=== PATIENT | female | born 1960 | race African-American/Black ===

== ENCOUNTER 2016-08-20 14:27 | Emergency (ER) | payer MEDICAID ==
[~2016-08-20] VITALS: Ht 149.9 cm; Wt 61.7 kg
[~2016-08-20 14:27] MED LIST: AUGMENTIN 875-1 EAC1 ORAL; CORTISPORIN EAR10 ML OTIC; CYCLOBENZAPRINE10 MG ORAL; DOCUSATE SODIU100 M2 ORAL; IBUPROFEN600 MG ORAL; NKM; NORCO 5-325 TA1 EACH ORAL
[2016-08-20] MEDS ORDERED: DEBROX15 M1 RIGHT EAR (15:04)
[2016-08-20] MEDS ORDERED: CORTISPORIN EAR10 ML RIGHT EAR (15:04)
[2016-08-20 15:14] VITALS: BP 110/69
[2016-08-20 15:16] VITALS: BP 110/69
--- NOTE | 2016-08-20 23:05 | Emergency Room Report ---
History of Present Illness General Chief Complaint: Earache Source: Patient Present Illness HPI The patient is a 55-year-old female presenting with right ear pain which began 3 days prior. The patient states that she had water stuck in the ear and used a Q-tip aggressively and subsequently developed the pain. The patient states that the pain is a 9/10 dull ache it is worse with touch. Pain does not radiate. The patient denies any changes in hearing and denies dizziness, headache, fever, chills Allergies: Coded Allergies: No Known Allergies (Unverified , 07/28/14) Patient History Past Medical History: see triage record Pertinent Family History: none Last Menstrual Period: n/a Reviewed Nursing Documentation: PMH: Agreed, PSxH: Agreed Nursing Documentation-PMH Past Medical History: No Stated History Review of Systems All Other Systems: negative except mentioned in HPI Physical Exam Vital Signs Date Time Temp Pulse Resp B/P Pulse Ox O2 Delivery O2 Flow Rate FiO2 08/20/16 14:36 98.1 79 16 110/69 99 Room Air Sp02 EP Interpretation: reviewed, normal General Appearance: no apparent distress, alert, GCS 15, non-toxic Head: normocephalic, atraumatic Eyes: bilateral eye PERRL, bilateral eye normal inspection ENT: hearing grossly normal, normal pharynx, no angioedema, normal voice, other - R ear EAC: erythema and edema with white DC Neck: full range of motion, supple/symm/no masses Respiratory: chest non-tender, lungs clear, normal breath sounds, speaking full sentences Cardiovascular #1: regular rate, rhythm, no edema Neurologic: alert, oriented x3, responsive, motor strength/tone normal, sensory intact, speech normal Psychiatric: judgement/insight normal, memory normal, mood/affect normal, no suicidal/homicidal ideation Skin: normal color, no rash, warm/dry, well hydrated Lymphatic: no adenopathy Medical Decision Making PA Attestation Dr. Mcarthur is my supervising physician. Patient management was discussed with my supervising physician Diagnostic Impression: Primary Impression: Cerumen impaction Additional Impression: Otitis externa of right ear ER Course The patient is a 55-year-old female presenting with right ear pain which began 3 days prior. Differential diagnosis include but not limited to otitis externa, otitis media, mastoiditis, sinusitis, pharyngitis Physical exam: Vitals within normal limits her distress Right ear: There is erythema and edema with white discharge to the external auditory canal. There is also cerumen impaction. Tympanic membrane is not visualized. There is tenderness to palpation with pressure over the tragus. Otherwise exam unremarkable The patient is discharged home with a prescription for the proximal and Cortisporin. ER precautions are given. Patient told to no longer use Q-tips. Last Vital Signs Date Time Temp Pulse Resp B/P Pulse Ox O2 Delivery O2 Flow Rate FiO2 08/20/16 15:16 98.1 08/20/16 15:16 69 16 110/69 99 Room Air Status: improved Disposition: HOME, SELF-CARE Condition: Improved Scripts Neomycin/Polymyxin B Sulf/Hc* (CORTISPORIN EAR SOLUTION*) 10 Ml Solution 4 DROP RIGHT EAR QID, #10 ML 0 Refills Prov: CONRAD SANTANA 08/20/16 Carbamide Peroxide (DEBROX) 15 Ml Drops 10 DROP RIGHT EAR TWICE A DAY for 4 Days, ML 0 Refills Prov: CONRAD SANTANA 08/20/16 Patient Instructions: Cerumen Impaction, Otitis Externa Additional Instructions: I discussed my findings with the patient. All questions and concerns have been answered. Treatment and medication compliance have been addressed. I advised the patient that they need to follow up with PMD in 3-5 days. Return to ED if symptoms worsen, new symptoms arise, or if needed for any reason. Patient verbalized understanding of discharge instructions. CONRAD SANTANA Aug 20, 2016 23:05
== END 2016-08-20 15:18 | disposition home or self-care (01) ==
LOC: EMR 15:00
DX: H61.21 Impacted cerumen, right ear (principal); H60.91 Unspecified otitis externa, right ear
CPT/HCPCS: 99284

== ENCOUNTER 2016-09-25 17:36 | Emergency (ER) | payer MEDICAID ==
[~2016-09-25] VITALS: Ht 149.9 cm; Wt 61.7 kg
[~2016-09-25 17:36] MED LIST changes: +CORTISPORIN EAR10 ML RIGHT EAR; +DEBROX15 M1 RIGHT EAR
[2016-09-25] MEDS ORDERED: Bacitracin Oint UD TOPIC ONE (19:00)
--- NOTE | 2016-09-25 19:06 | Emergency Room Report ---
History of Present Illness General Chief Complaint: Skin Rash/Abscess Source: Patient Present Illness HPI 55-year-old female presents to emergency Department complaining of rash localized to the inner left forearm and inner thigh/knee times one day. Patient reports 10 out of 10 in severity pain which she describes as burning in nature she reports mild itching. Patient states that originally she felt burning sensation and then noticed small bumps in the areas described which also became swollen with itching. Patient states she applied toothpaste with no relief she is worried that she is a spider bite and may have gotten infected. Patient denies lesions elsewhere she denies other contacts with similar symptoms. Patient denies recent travel patient denies nausea vomiting fevers chills. She denies history of immunocompromise. Denies CP, Palpitations , LOC, AMS, dizziness, Changes in Vision, Sensation, paresthesias, or a sudden severe headache. Allergies: Coded Allergies: No Known Allergies (Unverified , 07/28/14) Patient History Past Medical History: see triage record Past Surgical History: none Pertinent Family History: none Last Menstrual Period: 2009 Now: No Immunizations: UTD Reviewed Nursing Documentation: PMH: Agreed, PSxH: Agreed Nursing Documentation-PMH Past Medical History: No History, Except For Review of Systems All Other Systems: negative except mentioned in HPI Physical Exam Vital Signs Date Time Temp Pulse Resp B/P Pulse Ox O2 Delivery O2 Flow Rate FiO2 09/25/16 18:03 98.6 99 16 125/75 100 Room Air Sp02 EP Interpretation: reviewed, normal General Appearance: no apparent distress, alert, GCS 15, non-toxic Head: normocephalic, atraumatic Eyes: bilateral eye PERRL, bilateral eye normal inspection ENT: hearing grossly normal, normal pharynx, no angioedema, normal voice Neck: full range of motion, supple/symm/no masses Respiratory: chest non-tender, lungs clear, normal breath sounds, speaking full sentences Cardiovascular #1: regular rate, rhythm, no edema Gastrointestinal: normal bowel sounds, non tender, soft, no guarding, no rebound Rectal: deferred Genitourinary: normal inspection, no CVA tenderness Musculoskeletal: back normal, gait/station normal, normal range of motion, non- tender, no calf tenderness Neurologic: alert, oriented x3, responsive, motor strength/tone normal, sensory intact, speech normal Psychiatric: judgement/insight normal, memory normal, mood/affect normal, no suicidal/homicidal ideation Skin: normal color, warm/dry, well hydrated, rash - Localized areas with vesicular lesions and surrounding erythema.and induration. to the left inner forearm, and lef tmedial thigh. Lymphatic: no adenopathy Medical Decision Making PA Attestation Dr. Wooten is my supervising Physician whom patient management has been discussed with. Diagnostic Impression: Primary Impression: Rash and other nonspecific skin eruption ER Course 55-year-old female presents to emergency Department complaining of rash localized to the inner left forearm and inner thigh/knee times one day. Patient reports 10 out of 10 in severity pain which she describes as burning in nature she reports mild itching. Patient states that originally she felt burning sensation and then noticed small bumps in the areas described which also became swollen with itching. Patient states she applied toothpaste with no relief she is worried that she is a spider bite and may have gotten infected. Patient denies lesions elsewhere she denies other contacts with similar symptoms. Patient denies recent travel patient denies nausea vomiting fevers chills. She denies history of immunocompromise. Ddx considered but are not limited to cellulitis, scabies, shingles, varicella, dermatitis, urticaria, eczema, tinea Vital signs: are WNL, pt. is afebrile H&PE are most consistent with vesicular viral looking rash with surrounding erythema and increased temperature to palpation suspicious for secondary infection. ORDERS: none required at this time, the diagnosis is clinical ED INTERVENTIONS: -650mg Tylenol PO -Bacitracin and wound dressing is applied to the localized rashes. DISCHARGE: At this time pt. is stable for d/c to home. Will provide printed patient care instructions, and any necessary prescriptions. Care plan and follow up instructions have been discussed with the patient prior to discharge. Last Vital Signs Date Time Temp Pulse Resp B/P Pulse Ox O2 Delivery O2 Flow Rate FiO2 09/25/16 18:03 98.6 99 16 125/75 100 Room Air Disposition: HOME, SELF-CARE Condition: Stable Scripts Acetaminophen* (TYLENOL EXTRA STRENGTH*) 500 Mg Tablet 500 MG ORAL Q6H, #30 TAB 0 Refills Prov: Gloria Puentes P.ALuis 09/25/16 Cephalexin* (KEFLEX*) 500 Mg Capsule 500 MG ORAL EVERY 12 HOURS for 7 Days, #14 CAP 0 Refills Prov: Gloria Puentes 09/25/16 Bacitracin Zinc/Polymyx B Sulf (HM DOUBLE ANTIBIOTIC OINTMENT) 28.4 Gm Oint...g. 1 APPLIC TP TID, #28.4 GM Prov: Gloria Puentes 09/25/16 Hydroxyzine Hcl (HYDROXYZINE HCL) 25 Mg Tablet 25 MG PO Q6HR, #30 TAB Prov: Gloria Puentes 09/25/16 Acyclovir* (ACYCLOVIR*) 400 Mg Tablet 400 MG ORAL FIVE TIMES A DAY for 7 Days, #35 TAB Prov: Gloria Puentes 09/25/16 Referrals: NAHEED DAVIS,REFERRING (PCP) Patient Instructions: Rash Additional Instructions: Take medications as directed. Follow up with PCP in 3-5 days Return sooner to ED if new symptoms occur, or current symptoms become worse. Do not drink alcohol, drive, or operate heavy machinery while taking hydroxyzine as this may cause drowsiness. - Please note that this Emergency Department Report was dictated using [employer] inspector technology software, occasionally this can lead to erroneous entry secondary to interpretation by the dictation equipment. Gloria Puentes Sep 25, 2016 19:06
[2016-09-25] MEDS ORDERED: TYLENOL EXTRA500 MG ORAL (19:09)
[2016-09-25] MEDS ORDERED: HM DOUBLE ANT28.4 G1 TP (19:09)
[2016-09-25] MEDS ORDERED: HYDROXYZINE HCL25 M1 PO (19:09)
[2016-09-25] MEDS ORDERED: CEPHALEXIN500 MG ORAL (19:09)
[2016-09-25] MEDS ORDERED: ACYCLOVIR400 MG ORAL (19:09)
[2016-09-25 19:30] VITALS: BP_SYST 126; BP_SYST 127; BP_DIAS 83
== END 2016-09-25 19:30 | disposition home or self-care (01) ==
LOC: EMR 18:25
DX: R21 Rash and other nonspecific skin eruption (principal)
CPT/HCPCS: 99284

== ENCOUNTER 2017-01-14 19:02 | Emergency (ER) | payer MEDICAID ==
[~2017-01-14] VITALS: Ht 149.9 cm; Wt 59.0 kg
[~2017-01-14 19:02] MED LIST changes: +ACYCLOVIR400 MG ORAL; +CEPHALEXIN500 MG ORAL; +HM DOUBLE ANT28.4 G1 TP; +HYDROXYZINE HCL25 M1 PO; +TYLENOL EXTRA500 MG ORAL
[2017-01-14 19:30] VITALS: BP 130/79
--- NOTE | 2017-01-14 19:41 | Emergency Room Report ---
History of Present Illness General Chief Complaint: Animal Bite Source: Patient Present Illness HPI 56-year-old female presents emergency department complaining of multiple insect bites on the posterior thighs bilaterally since yesterday. Patient reports erythema, mild swelling, moderate itching. Pt. describes 8/10 in severity burning and itching. She denies increased temperature palpation, denies fevers chills, recent trauma or fall. She denies lesions elsewhere on the body. Denies Wheezing, SOB, swelling of th lips/tongue, CP, Palpitations, LOC, AMS, dizziness, Changes in Vision, Sensation, paresthesias, or a sudden severe headache. Allergies: Coded Allergies: No Known Allergies (Unverified , 07/28/14) Patient History Past Medical History: see triage record Past Surgical History: none Pertinent Family History: none Last Menstrual Period: N/A Now: No Immunizations: UTD Reviewed Nursing Documentation: PMH: Agreed, PSxH: Agreed Review of Systems All Other Systems: negative except mentioned in HPI Physical Exam Vital Signs Date Time Temp Pulse Resp B/P Pulse Ox O2 Delivery O2 Flow Rate FiO2 01/14/17 19:05 99.7 76 18 136/80 100 Room Air Sp02 EP Interpretation: reviewed, normal General Appearance: no apparent distress, alert, GCS 15, non-toxic Head: normocephalic, atraumatic Eyes: bilateral eye PERRL, bilateral eye normal inspection ENT: hearing grossly normal, normal pharynx, no angioedema, normal voice Neck: full range of motion, supple/symm/no masses Respiratory: lungs clear, normal breath sounds, no wheezing, speaking full sentences Cardiovascular #1: regular rate, rhythm, no edema Musculoskeletal: back normal, gait/station normal, normal range of motion, non- tender Neurologic: alert, oriented x3, responsive, motor strength/tone normal, sensory intact, speech normal Psychiatric: judgement/insight normal, memory normal, mood/affect normal Skin: normal color, no rash, warm/dry, well hydrated, other - multiple insect bites to the posterior thighs bilaterally, no evidence of secondary infection at this time, no blistering no vessicles Lymphatic: no adenopathy Medical Decision Making PA Attestation Dr. Bermudez is my supervising Physician whom patient management has been discussed with. Diagnostic Impression: Primary Impression: Insect bite Qualified Codes: W57.XXXA - Bitten or stung by nonvenomous insect and other nonvenomous arthropods, initial encounter ER Course 56-year-old female presents emergency department complaining of multiple insect bites on the posterior thighs bilaterally since yesterday. Patient reports erythema, mild swelling, moderate itching. Pt. describes 8/10 in severity burning and itching. She denies increased temperature palpation, denies fevers chills, recent trauma or fall. She denies lesions elsewhere on the body. Denies Wheezing, SOB, swelling of th lips/tongue, CP, Palpitations, LOC, AMS, dizziness, Changes in Vision, Sensation, paresthesias, or a sudden severe headache. Ddx considered but are not limited to cellulitis, scabies, insect bites, tic bites, spider bites, contact dermatitis, Drug reaction, allergic reaction, fungal infection, lice. Vital signs: are WNL, pt. is afebrile H&PE are most consistent with localized reaction to insect bites, no evidence of secondary infection at this time. ORDERS: none required at this time, the diagnosis is clinical ED INTERVENTIONS: -25mg Benadryl PO -Tylenol PO DISCHARGE: At this time pt. is stable for d/c to home. Will provide printed patient care instructions, and any necessary prescriptions. Care plan and follow up instructions have been discussed with the patient prior to discharge. Last Vital Signs Date Time Temp Pulse Resp B/P Pulse Ox O2 Delivery O2 Flow Rate FiO2 01/14/17 19:05 99.7 76 18 136/80 100 Room Air Disposition: HOME, SELF-CARE Condition: Stable Scripts Acetaminophen* (TYLENOL EXTRA STRENGTH*) 500 Mg Tablet 500 MG ORAL Q6H, #20 TAB 0 Refills Prov: Gloria Puentes 01/14/17 Diphenhydramine Hcl* (BENADRYL*) 25 Mg Capsule 25 MG ORAL Q6H Y for Itching, #20 CAP Prov: Gloria Puentes 01/14/17 Hydrocortisone 2% Cream (ANTI-ITCH 2% CREAM) Y Cr 1 APPLIC TP BID, #28.3 GM Prov: Gloria Puentes 01/14/17 Patient Instructions: Insect Bite, [id number] Additional Instructions: Take medications as directed. Follow up with PCP in 3-5 days Return sooner to ED if new symptoms occur, or current symptoms become worse. - Please note that this Emergency Department Report was dictated using [employer] speaking coach technology software, occasionally this can lead to erroneous entry secondary to interpretation by the dictation equipment. Gloria Puentes. Jan 14, 2017 19:41
[2017-01-14] MEDS ORDERED: TYLENOL EXTRA500 MG ORAL (19:43)
[2017-01-14] MEDS ORDERED: ANTI-ITCH28 G1 TP (19:43)
[2017-01-14] MEDS ORDERED: BENADRYL25 MG ORAL (19:43)
== END 2017-01-14 20:05 | disposition home or self-care (01) ==
LOC: EMR 19:20
DX: S70.362A Insect bite (nonvenomous), left thigh, initial encounter (principal); S70.361A Insect bite (nonvenomous), right thigh, initial encounter; W57.XXXA Bitten or stung by nonvenomous insect and other nonvenomous arthropods, initial encounter; Y93.9 Activity, unspecified; Y92.9 Unspecified place or not applicable
CPT/HCPCS: 99284

== ENCOUNTER 2017-01-17 12:10 | Emergency (ER) | payer MEDICAID ==
[~2017-01-17] VITALS: Ht 149.9 cm; Wt 59.0 kg
[~2017-01-17 12:10] MED LIST changes: +ANTI-ITCH28 G1 TP; +BENADRYL25 MG ORAL
[2017-01-17 12:15] VITALS: BP 139/80
[2017-01-17] MEDS ORDERED: BACTRIM DS TAB1 EAC1 ORAL (12:30)
[2017-01-17] MEDS ORDERED: KEFLEX500 MG ORAL (12:30)
--- NOTE | 2017-01-17 12:34 | Emergency Room Report ---
History of Present Illness General Chief Complaint: Skin Rash/Abscess Source: Patient Present Illness HPI The patient is a 56-year-old female presenting for possible skin infection. The patient was seen in this emergency department 3 days prior for insect bites and given drill and hydrocortisone cream. The patient states that itching decreased but she has noticed increase in swelling and redness. These areas are primarily to the lower extremities. She states that she slept in an RV one week prior which is when the symptoms began. She denies any radiating pain. Pain worse with touch. It is described as a 4-10 dull ache. She denies other symptoms including nausea, vomiting, fever, chills, headache, dizziness, abdominal pain, diarrhea Allergies: Coded Allergies: No Known Allergies (Unverified , 07/28/14) Patient History Past Medical History: see triage record Pertinent Family History: none Last Menstrual Period: menopause Now: No Reviewed Nursing Documentation: PMH: Agreed, PSxH: Agreed Nursing Documentation-PMH Past Medical History: No History, Except For Review of Systems All Other Systems: negative except mentioned in HPI Physical Exam Vital Signs Date Time Temp Pulse Resp B/P Pulse Ox O2 Delivery O2 Flow Rate FiO2 01/17/17 12:15 97.5 62 18 139/80 100 Room Air Sp02 EP Interpretation: reviewed, normal General Appearance: no apparent distress, alert, GCS 15, non-toxic Head: normocephalic, atraumatic Eyes: bilateral eye PERRL, bilateral eye normal inspection ENT: hearing grossly normal, normal pharynx, no angioedema, normal voice Gastrointestinal: normal bowel sounds, non tender, soft, non-distended, no guarding, no rebound Musculoskeletal: back normal, gait/station normal, normal range of motion, no calf tenderness Neurologic: alert, oriented x3, responsive, motor strength/tone normal, sensory intact, speech normal Psychiatric: judgement/insight normal, memory normal, mood/affect normal, no suicidal/homicidal ideation Skin: rash - There are multiple circular erythematous macular lesions on the R lower extremity. Hot to the touch. TTP. Lymphatic: no adenopathy Medical Decision Making PA Attestation Dr. Mcarthur is my supervising physician. Patient management was discussed with my supervising physician Diagnostic Impression: Primary Impression: Cellulitis Qualified Codes: L03.119 - Cellulitis of unspecified part of limb ER Course The patient is a 56-year-old female presenting for possible skin infection Ddx considered include but not limited to insect bite, contact dermatitis, eczema, cellulitis, among others PE: afebrile. NAD There are multiple circular erythematous macular lesions on the R lower extremity. Hot to the touch. TTP. Consistent with cellulitis. The patient will continue to take the prescribed medications as directed and antibiotics will be added for cellulitis. ER precautions given. Last Vital Signs Date Time Temp Pulse Resp B/P Pulse Ox O2 Delivery O2 Flow Rate FiO2 01/17/17 12:15 97.5 62 18 139/80 100 Room Air Status: improved Disposition: HOME, SELF-CARE Condition: Improved Scripts Trimethoprim/Sulfamethoxazole 160/800* (BACTRIM DS TABLET*) 1 Each Tablet 1 TAB ORAL TWICE A DAY, #14 TAB Prov: CONRAD SANTANA 01/17/17 Cephalexin* (KEFLEX*) 500 Mg Capsule 500 MG ORAL EVERY 6 HOURS, #28 CAP 0 Refills Prov: CONRAD SANTANA 01/17/17 Patient Instructions: Cellulitis Additional Instructions: I discussed my findings with the patient. All questions and concerns have been answered. Treatment and medication compliance have been addressed. I advised the patient that they need to follow up with PMD in 3-5 days. Return to ED if symptoms worsen, new symptoms arise, or if needed for any reason. Patient verbalized understanding of discharge instructions. CONRAD SANTANA Jan 17, 2017 12:34
[2017-01-17 12:35] VITALS: BP 139/80
== END 2017-01-17 12:35 | disposition home or self-care (01) ==
LOC: EMR 12:20
DX: L03.115 Cellulitis of right lower limb (principal)
CPT/HCPCS: 99284

== ENCOUNTER 2017-04-07 09:30 | Emergency (ER) | payer MEDICAID ==
[~2017-04-07] VITALS: Ht 149.9 cm; Wt 61.7 kg
[~2017-04-07 09:30] MED LIST changes: +BACTRIM DS TAB1 EAC1 ORAL; +KEFLEX500 MG ORAL
[2017-04-07 09:43] VITALS: BP 131/96
[2017-04-07] MEDS ORDERED: PREDNISONE20 MG ORAL (10:18)
[2017-04-07] MEDS ORDERED: DIPHENHYDRAMINE25 M1 ORAL (10:18)
[2017-04-07] MEDS ORDERED: KEFLEX500 MG ORAL (10:18)
[2017-04-07 10:23] VITALS: BP 126/81
--- NOTE | 2017-04-07 12:44 | Emergency Room Report ---
History of Present Illness General Chief Complaint: Skin Rash/Abscess Source: Patient Present Illness HPI 56-year-old female presents to ED for evaluation. Patient states she has multiple bumps to her body which started this morning. Patient states she just came into town to visit her friend and was staying at her friend's house last night. Patient states the bumps are very itchy with some pain, throbbing, 5 at 10. Denies fevers or chills. Denies any known food or drug allergies. Mother aggravating relieving factors. Denies any other associated symptoms Allergies: Coded Allergies: No Known Allergies (Unverified , 07/28/14) Patient History Past Medical History: none Past Surgical History: none Pertinent Family History: none Social History: Denies: smoking, alcohol use, drug use Last Menstrual Period: menopause Immunizations: UTD Reviewed Nursing Documentation: PMH: Agreed, PSxH: Agreed Nursing Documentation-PMH Past Medical History: No History, Except For Hx Cardiac Problems: No - Glaucoma Hx Hypertension: No Hx Pacemaker: No Hx Asthma: No Hx COPD: No Hx Diabetes: No Hx Cancer: No Hx Gastrointestinal Problems: No Hx Dialysis: No History Of Psychiatric Problem: No Hx Neurological Problems: No Hx Cerebrovascular Accident: No Hx Seizures: No Review of Systems All Other Systems: negative except mentioned in HPI Physical Exam Vital Signs Date Time Temp Pulse Resp B/P (MAP) Pulse Ox O2 Delivery O2 Flow Rate FiO2 04/07/17 09:43 98.4 68 14 131/96 98 Room Air Sp02 EP Interpretation: reviewed, normal General Appearance: no apparent distress, alert, GCS 15, non-toxic Head: normocephalic, atraumatic Eyes: bilateral eye normal inspection, bilateral eye PERRL ENT: hearing grossly normal, normal pharynx, no angioedema, normal voice Neck: full range of motion, supple/symm/no masses Respiratory: chest non-tender, lungs clear, normal breath sounds, speaking full sentences Cardiovascular #1: regular rate, rhythm, no edema Cardiovascular #2: 2+ carotid (R), 2+ carotid (L), 2+ radial (R), 2+ radial (L) , 2+ dorsalis pedis (R), 2+ dorsalis pedis (L) Gastrointestinal: normal bowel sounds, non tender, soft, non-distended, no guarding, no rebound Rectal: deferred Genitourinary: normal inspection, no CVA tenderness Musculoskeletal: back normal, gait/station normal, normal range of motion, non- tender Neurologic: alert, oriented x3, responsive, motor strength/tone normal, sensory intact, speech normal Psychiatric: judgement/insight normal, memory normal, mood/affect normal, no suicidal/homicidal ideation Reflexes: 3+ bicep (R), 3+ bicep (L), 3+ tricep (R), 3+ tricep (L), 3+ knee (R) , 3+ knee (L) Skin: normal color, warm/dry, well hydrated, other - multiple erythematous bumps noted to arms/legs, body. nonerythematous base. no fluctuance or discharge Lymphatic: no adenopathy Medical Decision Making Diagnostic Impression: Primary Impression: Insect bites Qualified Codes: W57.XXXA - Bitten or stung by nonvenomous insect and other nonvenomous arthropods, initial encounter ER Course Hospital Course 32-year-old female presents to ED with rash to back Differential diagnoses include: Cellulitis, dermatitis, insect bite, abscess Clinical course Patient placed on stretcher. After initial history, physical exam reveals a middle aged female in no acute distress. On exam there are multiple papular bumps noted to the arms legs and abdomen. Erythematous. Nonerythematous base. No fluctuance or discharge. Consistent with insect bites Discussed findings with the patient. We will treat with prednisone, Benadryl, Keflex. Diagnosis - insect bites stable and discharged to home with prescription for benedryl, keflex, prednisone. Instructed to followup with PMD. Instructed return to ED if symptoms recur or worsen Last Vital Signs Date Time Temp Pulse Resp B/P (MAP) Pulse Ox O2 Delivery O2 Flow Rate FiO2 04/07/17 10:23 98.4 73 16 126/81 99 Room Air Status: improved Disposition: HOME, SELF-CARE Condition: Stable Scripts Diphenhydramine Hcl* (DIPHENHYDRAMINE HCL*) 25 Mg Capsule 25 MG ORAL Q6H Y for Itching, #30 CAP 0 Refills Prov: FRANKO DUGAN M.D. 04/07/17 Prednisone* (PREDNISONE*) 20 Mg Tablet 40 MG ORAL DAILY, #10 TAB Prov: FRANKO DUGAN M.D. 04/07/17 Cephalexin* (KEFLEX*) 500 Mg Capsule 500 MG ORAL Q6H, #28 CAP 0 Refills Prov: FRANKO DUGAN M.D. 04/07/17 Patient Instructions: Insect Bite, [id number] FRANKO DUGAN M.D. Apr 07, 2017 12:44
== END 2017-04-07 10:23 | disposition home or self-care (01) ==
LOC: EMR 09:52
DX: S40.862A Insect bite (nonvenomous) of left upper arm, initial encounter (principal); S40.861A Insect bite (nonvenomous) of right upper arm, initial encounter; S80.862A Insect bite (nonvenomous), left lower leg, initial encounter; S80.861A Insect bite (nonvenomous), right lower leg, initial encounter; W57.XXXA Bitten or stung by nonvenomous insect and other nonvenomous arthropods, initial encounter; Y93.9 Activity, unspecified; Y92.9 Unspecified place or not applicable
CPT/HCPCS: 99284

== ENCOUNTER 2019-03-02 11:19 | Emergency (ER) | payer MEDICAID ==
[~2019-03-02] VITALS: Ht 149.9 cm; Wt 57.2 kg
[~2019-03-02 11:19] MED LIST changes: +DIPHENHYDRAMINE25 M1 ORAL; +PREDNISONE20 MG ORAL
--- NOTE | 2019-03-02 11:34 | NUR ---
ED Nurse Note: Pt walked in due to right earache and dark brown drainage with ocassional pus for months. Pt states she has always have an ear problem before. Denies fever. Pt also c/o spinning sensation and headache. AAO x4, ambulatory with unlabored breathing.
[2019-03-02 11:36] VITALS: BP 128/80
--- NOTE | 2019-03-02 11:57 | Emergency Room Report ---
History of Present Illness General Chief Complaint: Earache Source: Patient Present Illness HPI Patient has recurrent problems with her ears. Several days ago she had lymph node swelling in her neck that she thought was related to flossing. Now she has pus drainage out of her right ear. There is no tenderness on the right when she touches the external ear. She denies fevers or chills. There is no cough at this time. The patient does smoke cigarettes. Pain is rated 6/10 and aching and pressure in the right ear. No other somatic complaints. 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 Reviewed Nursing Documentation: PMH: Agreed; PSxH: Agreed Nursing Documentation-PMH Past Medical History: No History, Except For Hx Cardiac Problems: No - Glaucoma Hx Hypertension: No Hx Pacemaker: No Hx Asthma: No Hx COPD: No Hx Diabetes: No Hx Cancer: No Hx Gastrointestinal Problems: No Hx Dialysis: No Hx Neurological Problems: No Hx Cerebrovascular Accident: No Hx Seizures: No Review of Systems Constitutional: Reports: see HPI ENT: Reports: see HPI Respiratory: Denies: cough Skin: Denies: rash Neurological: Denies: headache Hematologic/Lymphatic: Reports: see HPI Physical Exam Vital Signs Date Time Temp Pulse Resp B/P (MAP) Pulse Ox O2 Delivery O2 Flow Rate FiO2 03/02/19 11:24 99.0 67 16 128/80 (96) 99 Room Air Sp02 EP Interpretation: reviewed, normal General Appearance: well appearing, no apparent distress, GCS 15 Head: normocephalic Eyes: bilateral eye normal inspection, bilateral eye PERRL ENT: moist mucus membranes, other Neck: supple Respiratory: lungs clear, speaking full sentences Cardiovascular #1: regular rate, rhythm Cardiovascular #2: 2+ radial (R) Gastrointestinal: normal inspection Musculoskeletal: gait/station normal Neurologic: alert, oriented x3, grossly normal Psychiatric: mood/affect normal Skin: no rash Medical Decision Making Diagnostic Impression: Primary Impression: Right otitis media ER Course The patient presents with right ear pain. His exam is consistent with otitis media which is separative. No perforation is identified however there is pus in the ear canal. Antibiotics are indicated. There is no pinna tenderness which excludes otitis externa. Antibiotics are begun. Discussion with patient regarding smoking cessation and treatment plan. She was advised to follow-up with her own physician. Patient stable for outpatient observation and treatment. Last Vital Signs Date Time Temp Pulse Resp B/P (MAP) Pulse Ox O2 Delivery O2 Flow Rate FiO2 03/02/19 12:09 99.0 79 15 125/77 100 Room Air Status: improved Disposition: HOME, SELF-CARE Condition: Improved Scripts Chlorpheniramine Maleate (CHLOR-TRIMETON) 4 Mg Tablet 4 MG PO Q6HR PRN for congestion and itching, #14 TAB Prov: Edilson Bermudez MD 03/02/19 Amoxicillin* (AMOXIL*) 500 Mg Capsule 500 MG ORAL THREE TIMES A DAY, #21 CAP Prov: Edilson Bremudez MD 03/02/19 Edilson Bermudez MD Mar 02, 2019 11:57
[2019-03-02] MEDS ORDERED: CHLOR-TRIMETON4 MG PO (12:01)
[2019-03-02] MEDS ORDERED: AMOXICILLIN500 MG ORAL (12:01)
--- NOTE | 2019-03-02 12:09 | NUR ---
ER DISCHARGE NOTE: Patient is cleared to be discharged per ERMD, pt is aox4, on room air, with stable vital signs. pt was given dc and prescription instructions, pt was able to verbalize understanding, pt id band removed without complications. pt is able to ambulate with steady gait. pt took all belongings.
== END 2019-03-02 12:09 | disposition home or self-care (01) ==
LOC: EMR 11:45
DX: H66.41 Suppurative otitis media, unspecified, right ear (principal); H40.9 Unspecified glaucoma; F17.200 Nicotine dependence, unspecified, uncomplicated
CPT/HCPCS: 99282